=== PATIENT | female | born 2000 | race Hispanic/Latino ===

== ENCOUNTER 2022-04-01 10:58 | Emergency (ER) | payer OTHER, MEDICAID, SELFPAY ==
--- NOTE | ~2022-04-01 | XR_ITS ---
EXAMINATION: XR chest 1V portable INDICATION: Sore throat, congestion TECHNIQUE: Portable AP chest at 1127 hours COMPARISON: None available FINDINGS: The lungs are free of acute opacities. No pleural effusion or pneumothorax. The cardiomedia stinal silhouette is normal. The visualized bones and soft tissues are unremarkable. IMPRESSION: 1. No acute cardiopulmonary abnormality. Reviewed, dictated and finalized at location B. [facility] [employer]
[2022-04-01 11:03] VITALS: BP 119/79; PULSE 74; RESP 16; TEMP 37; O2SAT 100
[2022-04-01 12:13] LABS: Influenza A QL RT-PCR Negative (Negative); Influenza B QL RT-PCR Negative (Negative); SARS-CoV-2 RNA PCR Negative
--- NOTE | 2022-04-01 12:47 | ED.URI ---
HPI - URI/Sore Throat General Chief Complaint: Upper Respiratory Infection Stated Complaint: st Time Seen by Provider: 04/01/22 11:20 Source: patient Mode of arrival: ambulatory Limitations: no limitations History of Present Illness HPI Narrative: 22-year-old female presents today with complaints of sore throat x2 days. Patient denies any fevers, cough, runny nose, recent sick contacts. Patient does endorse some congestion in the upper chest but denies chest pain, shortness of breath. Related Data Home Medications Medication Instructions Recorded Confirmed No Home Medications 04/01/22 04/01/22 Allergies Allergy/AdvReac Type Severity Reaction Status Date / Time No Known Allergies Allergy Verified 04/01/22 11:06 Review of Systems Review of Systems: CONSTITUTIONAL: Denies fever, chills, or sweats. EYES: Denies visual changes, redness, or discharge. ENT: Sore throat upper chest congestion. Denies rhinorrhea or otalgia. CARDIOVASCULAR: Denies chest pain, palpitations, or edema. RESPIRATORY: Denies cough or dyspnea. GASTROINTESTINAL: Denies abdominal pain, nausea, vomiting, or diarrhea. MUSCULOSKELETAL: Denies back pain, joint pain, or myalgia. NEUROLOGIC: Denies headache, numbness, dizziness, or weakness. Exam Narrative: GENERAL: Well-appearing, well-nourished, and in no acute distress. HEAD: Normocephalic, atraumatic. EYES: PERRLA and EOMI. ENT: Nares clear, no rhinorrhea or epistaxis. Mucous membranes moist. Oropharynx without tonsillar hypertrophy exudate or other lesions. Posterior pharyngeal erythema. Bilateral TMs pearly moreno nonbulging NECK: Supple. No adenopathy or masses. No carotid bruits or JVD CHEST: Clear to auscultation. No respiratory distress. No wheezes rales or rhonchi HEART: Regular rate and rhythm. No murmur heard. Normal peripheral pulses. SKIN: Warm, dry, no rash. NEURO: No focal deficits. Alert and oriented x3. Course Course Emergency Course: Discussed findings with patient. Aware influenza, COVID, strep negative. Suspect pharyngitis versus URI. Treat with Tylenol ibuprofen and push fluids. All questions answered. Patient in agreement with plan of care will be discharged home. Vital Signs Vital signs: Vital Signs Temperature 37.0 C 04/01/22 11:03 Pulse Rate 74 11/10/22 11:03 Respiratory Rate 16 04/01/22 11:03 Blood Pressure 119/79 04/01/22 11:03 Pulse Oximetry 100 04/01/22 11:03 Temperature 37.0 C 04/01/22 11:03 Pulse Rate 74 04/01/22 11:03 Respiratory Rate 16 04/01/22 11:03 Blood Pressure 119/79 04/01/22 11:03 Pulse Oximetry 100 04/01/22 11:03 MDM - URI/Sore Throat Differential Diagnosis Differential diagnosis: Likely upper respiratory infection, viral infection, influenza and pharyngitis Medical Records Attestation: I reviewed the patient's medical records. Lab Data Labs: Lab Results 04/01/22 Range/Units 11:29 Influenza A (RT-PCR) Negative (Negative) Influenza B (RT-PCR) Negative (Negative) SARS-CoV-2 RNA (RT-PCR) Negative Strep Screen Presumptive Negative *(Reference Range: Negative)* Discharge Plan Discharge Clinical Impression: Pharyngitis Patient Disposition: Home, Self-Care Condition: Stable Instructions: Antibiotic Form, Pharyngitis (ED) Additional Instructions: Tylenol or ibuprofen as needed for pain or fever. Make sure to push fluids. Return with any new or worsening concerns. Follow-up with primary if symptoms do not improve. Prescriptions: No Action No Home Medications Follow-up/Referrals: Fausto,[employer] [Primary Care Provider] - 3 Days (If symptoms do not improve) Stand Alone Forms: Work/School Release IP Time of Disposition: 13:03
== END 2022-04-01 13:37 | disposition home or self-care (01) ==
PROVIDERS: Emergency Medicine; Emergency Provider Nurse Practitioner Family; PCP Registered Nurse
DX: J02.9 Acute pharyngitis, unspecified (principal); Z20.822 Contact with and (suspected) exposure to COVID-19
CPT/HCPCS: 71045; 87081; 87502; 87880; 99283; U0003; U0005